=== PATIENT | female | born 1950 | race American Indian/Alaskan Native ===

== ENCOUNTER 2017-07-25 09:45 | Outpatient (CLI) | payer MEDICARE ==
--- NOTE | 2017-07-25 10:53 | Mammography Report ---
Left mammogram: Exam is short-term followup from prior study of December 2016. CC and lateral magnification views. Focal left breast calcifications have increased in number and density. Slightly pleomorphic but quite dense. Questionable soft tissue component. Impression: Indeterminate left calcifications. Recommendation: Stereotactic biopsy. Findings and recommendations discussed with patient. BI-RADS CATEGORY: 4 = Suspicious ACR BI-RADS MAMMOGRAPHIC CODES: 0 = Needs additional imaging evaluation; 1 = Negative; 2 = Benign; 3 = Probably benign; 4 = Suspicious; 5 = Malignant; 6 = Known biopsy-proven malignancy COMMENT: 1. Dense breast tissue, i.e., adenosis, fibrocystic changes, etc., may obscure an underlying neoplasm. 2. Approximately 10% of cancers are not detected with mammography. 3. A negative mammography report should not delay biopsy if a clinically suspicious mass is present.
== END 2017-07-25 09:46 | disposition home or self-care (01) ==
LOC: MAMMO 09:45
PROVIDERS: ATTEND Family Medicine
DX: R92.1 Mammographic calcification found on diagnostic imaging of breast (principal)
CPT/HCPCS: G0206-LT

== ENCOUNTER 2017-08-11 09:53 | Outpatient (CLI) | payer MEDICARE ==
--- NOTE | 2017-08-11 11:18 | History and Physical Report ---
History of Present Illness Date of examination: 08/11/17 Chief complaint: lt. breast calcs Medications and Allergies Allergies Allergy/AdvReac Type Severity Reaction Status Date / Time codeine Allergy Intermediate NAUSEA/VOMI Verified 02/17/15 14:11 TING levofloxacin [From Levaquin] Allergy Intermediate RASH Verified 02/17/15 14:11 VOMITING acetaminophen [From Lortab] Allergy Vomiting Unverified 05/06/16 09:33 hydrocodone bitartrate Allergy Vomiting Unverified 05/06/16 09:33 [From Lortab] morphine Allergy Nausea Unverified 05/06/16 09:33 Opioids - Morphine Analogues Allergy Nausea Unverified 12/17/16 08:52 Home Medications Medication Instructions Recorded Confirmed Last Taken Type Mirtazapine [Remeron] 1 tab PO DAILY 06/29/14 02/22/15 02/21/15 History Omeprazole [PriLOSEC] 40 mg PO DAILY 06/29/14 02/22/15 02/21/15 History ALPRAZolam 0.25 mg PO PRN PRN 02/17/15 02/22/15 02/21/15 History Atorvastatin 20 mg PO DAILY 02/17/15 02/22/15 02/21/15 History Remeron 45 mg PO DAILY 02/17/15 02/22/15 02/21/15 History Vistaril 25 mg PO PRN PRN 02/17/15 02/22/15 02/20/15 History Acetaminophen [Tylenol] 500 mg PO Q6HR PRN #20 tablet 11/09/16 Unknown Rx Erythromycin [Erythromycin Ophth 10 applic OP BID #1 tube 11/09/16 Unknown Rx Oint] Neomy/Baci/Polymyx Oint [Triple 15 gm TP BID #1 oint 11/09/16 Unknown Rx Antibiotic]
--- NOTE | 2017-08-11 11:23 | Procedure Note ---
Date of procedure: 08/11/17 Pre-op diagnosis: lt breast calcs Post-op diagnosis: same Procedure: stereo bx Findings: calcs Anesthesia: local Surgeon: RODOLFO GRIDER Estimated blood loss: none Pathology: list (lt breast tissue) Specimen disposition: to lab Condition: stable Disposition: same day
--- NOTE | 2017-08-11 11:29 | Mammography Report ---
Stereotactic biopsy of the left breast, marker placement, two-view mammogram: Patient presents with calcifications in the medial breast. A medial approach was utilized. Calcifications were successfully targeted. The skin was cleansed and 1% lidocaine used for local anesthesia. An 8-gauge biopsy needle was utilized and 8 sections were obtained around the clock. An image of the removed specimens demonstrates the targeted calcifications within 2 of the sections. A marker was left in place confirmed with mammography. Following removal of the biopsy needle and held compression was performed prior to bandaging. A followup mammogram confirmed positioning of the marker and complete removal of the targeted calcifications. There were no procedure complications and the patient was discharged following followup instructions.
== END 2017-08-11 09:54 | disposition home or self-care (01) ==
LOC: SPVWC 09:53
PROVIDERS: ATTEND Family Medicine
DX: N64.9 Disorder of breast, unspecified (principal); R92.1 Mammographic calcification found on diagnostic imaging of breast
CPT/HCPCS: 19081; 88305; A4648; G0206

== ENCOUNTER 2018-05-01 12:11 | Outpatient (CLI) | payer MEDICARE ==
[2018-05-01 12:49] LABS: Blood Urea Nitrogen 11 mg/dL (7-17)
--- NOTE | 2018-05-01 15:54 | Cat Scan Report ---
FINAL REPORT EXAM: CT ABDOMEN PELVIS W CON HISTORY: DIARRHEA/IRRITABLE BOWEL SYNDROME/ABDOMINAL PAIN L LOWER QUADRANT TECHNIQUE: Standard enhanced CT of the abdomen and pelvis. Coronal and sagittal reconstruction was also performed. Delayed imaging through the abdomen and pelvis was obtained. Contrast: Intravenous and oral contrast given PRIORS: None. FINDINGS: There is an inflammatory process involving the proximal half of the sigmoid colon. This demonstrates diffuse wall thickening up to 14 mm and surrounding stranding in the adjacent fat. Numerous diverticuli are noted throughout this segment with suggesting acute diverticulitis. There is no localized perforation or abscess formation identified. Within the abdomen, the liver demonstrates scattered rounded hypodense foci throughout both lobes, likely consistent with cysts. These are too small to characterize. The spleen, pancreas, gallbladder, and adrenal glands are unremarkable. There is a 1.2 cm cyst in the medial right kidney. A 9 mm peripelvic cyst is seen in the lower pole right kidney. A 5 mm cyst is seen in the medial left kidney. No evidence for retroperitoneal or pelvic lymphadenopathy is seen. The bowel loops have normal caliber. No soft tissue mass, fluid collection, or free air is seen within the abdomen or pelvis. The appendix is normal. Within the pelvis, the bladder is unremarkable. The uterus has been surgically removed. No evidence for mass or lymphadenopathy is seen in the pelvis. Images through the upper abdomen include the lung bases which are expanded and clear. There is a small hiatal hernia. Bony structures show no focal abnormalities and are intact. Several injection site granulomas over the left buttock are noted. IMPRESSION: 1. acute sigmoid diverticulitis without evidence for localized perforation or abscess formation. 2. Multiple hypodensities in the liver consistent with cysts. 3. Bilateral renal cysts. 4. Small hiatal hernia.
== END 2018-05-01 12:12 | disposition home or self-care (01) ==
LOC: CT 12:11
PROVIDERS: ATTEND Nurse Practitioner Adult Health
DX: K57.32 Diverticulitis of large intestine without perforation or abscess without bleeding (principal); K44.9 Diaphragmatic hernia without obstruction or gangrene; N28.1 Cyst of kidney, acquired; Z88.5 Allergy status to narcotic agent; Z88.1 Allergy status to other antibiotic agents; Z88.6 Allergy status to analgesic agent
CPT/HCPCS: 36415; 74177; 82565; 84520; Q9967